=== PATIENT | female | born 1945 | race American Indian/Alaskan Native ===

== ENCOUNTER 2017-08-21 09:09 | Outpatient (CLI) | payer MEDICARE ==
--- NOTE | 2017-08-21 09:28 | XRay Report ---
XRAY RIGHT KNEE 4 THREE VIEWS: 08/21/17 CLINICAL: Osteoarthritis. FINDINGS: Since 05/15/17, a total joint replacement has been performed. Normal appearance of the prosthesis with no evidence of loosening. Osteopenia is unchanged compared to the prior exam. Moderate diffuse soft tissue swelling.No joint effusion. IMPRESSION: Nonspecific soft tissue swelling status post total joint replacement.
== END 2017-08-21 09:10 | disposition home or self-care (01) ==
LOC: SPVIMAG 09:09
PROVIDERS: ATTEND Orthopaedic Surgery Sports Medicine
DX: M85.861 Other specified disorders of bone density and structure, right lower leg (principal); Z96.651 Presence of right artificial knee joint